=== PATIENT | male | born 1990 | race Two or more races ===

== ENCOUNTER 2019-10-31 20:37 | Emergency (ER) | payer SELFPAY ==
[~2019-10-31] VITALS: Ht 172.7 cm; Wt 67.0 kg
[2019-10-31] MEDS ORDERED: OMEP10 PO (20:58)
[2019-10-31 22:02] LABS: NEUTROPHILS % (AUTO) 63.6 % (40.0-70.0)
[2019-10-31 22:06] LABS: BASOPHILS % (AUTO) 0.3 % (0.0-2.0); EOSINOPHILS % (AUTO) 1.1 % (1.0-6.0); HEMATOCRIT 48.8 % (41-53); LYMPHOCYTES # (AUTO) 2.2 K/uL (1.0-4.8); LYMPHOCYTES % (AUTO) 23.7 % (22.0-44.0); MEAN CORPUSCULAR HEMOGLOBIN 31.6 pg (26.0-34.0); MEAN CORPUSCULAR HGB CONC 34.8 G/dL (31.0-37.0); MEAN CORPUSCULAR VOLUME 91 fL (80-100); MONOCYTES % (AUTO) 11.3 % (2.0-9.0); NEUTROPHILS # (AUTO) 5.8 K/uL (1.8-7.7); PLATELET COUNT (AUTO) 222 K/uL (150-450); RED BLOOD CELL COUNT(AUTO) 5.39 MIL/uL (4.50-5.90); RED CELL DISTRIBUTION WIDTH 13.6 % (11.5-14.5)
[2019-10-31 22:13] LABS: ANION GAP 7 mmol/L (8-16); CALCIUM, TOTAL 9.5 mg/dL (8.8-10.5); CARBON DIOXIDE 30 mmol/L (22-29); CHLORIDE 98 mmol/L (98-107); CREATININE 0.81 mg/dL (0.60-1.30); GLOMERULAR FILTR. RATE CALC > 60 mL/min (>60); GLUCOSE,RANDOM 107 mg/dL (70-110); POTASSIUM 4.2 mmol/L (3.5-5.1); SODIUM SERUM 135 mmol/L (136-145); UREA NITROGEN, BLOOD 14 mg/dL (7-18)
[2019-10-31 22:19] LABS: ALANINE AMINOTRANSFERASE 33 U/L (12-78); ALBUMIN 4.2 g/dL (3.4-5.0); ALKALINE PHOSPHATASE 72 U/L (46-116); ASPARTATE AMINOTRANSFERASE 23 U/L (15-37); BILIRUBIN,TOTAL 0.7 mg/dL (0.1-1.0); LIPASE 70 U/L (73-393); TOTAL PROTEIN, SERUM 8.6 g/dL (6.4-8.2)
[2019-10-31 23:52] VITALS: BP 156/107
[2019-11-01 00:44] LABS: APPEARANCE,URINE TURBID (CLEAR); BILIRUBIN,URINE NEGATIVE (NEGATIVE); GLUCOSE, URINE (UA) NEGATIVE (NEGATIVE); KETONES,URINE NEGATIVE (NEGATIVE); LEUKOCYTE ESTERASE ,URINE NEGATIVE (NEGATIVE); NITRATE,URINE NEGATIVE (NEGATIVE); OCCULT BLOOD,URINE NEGATIVE (NEGATIVE); PROTEIN,URINE SEE CONFIRM (NEGATIVE)
[2019-11-01 00:59] LABS: SULFOSALICYLIC ACID,URINE Trace (Negative)
[2019-11-01 01:00] LABS: AMORPHOUS SEDIMENT,UR Many /LPF (None Seen); BACTERIA,URINE Few /HPF (None Seen); RBC,URINE 0-2 /HPF (0-2); WBC,URINE 0-2 /HPF (0-5)
[2019-11-01] MEDS ORDERED: FAMOTIDINE 20 MG TABLET PO ONE (01:15)
[2019-11-01] MEDS ORDERED: PB/HYOSCY/ATR/SCOP/LIDO/MAALOX 55 ML BOTTLE PO ONE (01:15)
== END 2019-11-01 01:35 | disposition home or self-care (01) ==
LOC: EMS 20:39
DX: K29.70 Gastritis, unspecified, without bleeding (principal)
CPT/HCPCS: 93005

== ENCOUNTER 2021-11-05 01:51 | Emergency (ER) | payer MEDICAID ==
[~2021-11-05] VITALS: Ht 172.7 cm; Wt 62.0 kg
[~2021-11-05 01:51] MED LIST: OMEP10 PO
[2021-11-05] MEDS ORDERED: SODIUM CHLORIDE 0.9% 1,000 ML IV ONE (02:45)
[2021-11-05] MEDS ORDERED: METOCLOPRAMIDE HCL 5 MG/ML 2 ML VIAL IVP ONE (02:45)
[2021-11-05] MEDS ORDERED: DiphenhydrAMINE HCL 50 MG/ML VIAL IVP ONE (02:45)
[2021-11-05 05:10] VITALS: BP 142/72
== END 2021-11-05 05:15 | disposition home or self-care (01) ==
LOC: EMS 01:51
DX: R51.9 Headache, unspecified (principal); R11.2 Nausea with vomiting, unspecified
CPT/HCPCS: 70450; 96361; 96374; 96375; 99284; J1200; J2765; J7030

== ENCOUNTER 2023-04-29 21:40 | Emergency (ER) | payer MEDICAID ==
[~2023-04-29] VITALS: Ht 165.1 cm; Wt 73.0 kg
[2023-04-29] MEDS ORDERED: SODIUM CHLORIDE 0.9% 1,000 ML IV ONE (22:30)
[2023-04-29] MEDS ORDERED: DiphenhydrAMINE HCL 50 MG/ML VIAL IVP ONE (22:30)
[2023-04-29] MEDS ORDERED: METOCLOPRAMIDE HCL 5 MG/ML 2 ML VIAL IVP ONE (22:30)
[2023-04-29] MEDS ORDERED: KETOROLAC TROMETHAMINE 30 MG/ML VIAL IVP ONE (22:30)
[2023-04-30 00:31] VITALS: BP 124/68; PULSE 71; RESP 18; TEMP 97.3
== END 2023-04-30 00:41 | disposition home or self-care (01) ==
LOC: EMS 21:40
DX: R51.9 Headache, unspecified (principal); F12.90 Cannabis use, unspecified, uncomplicated
CPT/HCPCS: 99285; 96374; 96375; 96361; J1200; J1885; J2765; J7030

== ENCOUNTER 2024-02-13 19:19 | Emergency (ER) | payer MEDICAID ==
[~2024-02-13] VITALS: Ht 167.6 cm; Wt 75.0 kg
[~2024-02-13 19:19] MED LIST changes: -OMEP10 PO; +OMEP10CA38 PO
[2024-02-13 19:36] VITALS: TEMP 99.9
[2024-02-13 20:01] LABS: COVID AG,FIA SOURCE NASAL SWAB
[2024-02-13 20:19] LABS: INFLUENZA TYPE A NEGATIVE FOR TYPE A (NEGATIVE); INFLUENZA TYPE B NEGATIVE FOR TYPE B (NEGATIVE); SARS-COV2 (COVID) ANTIGEN,FIA Negative (Negative)
[2024-02-13] MEDS ORDERED: BENZ-227 PO (22:23)
[2024-02-13] MEDS ORDERED: AZIT250T9 PO (22:23)
[2024-02-13 22:36] VITALS: BP 142/76; PULSE 107; RESP 18
== END 2024-02-13 22:38 | disposition home or self-care (01) ==
LOC: EMS 19:19
DX: J98.4 Other disorders of lung (principal); R05.9 Cough, unspecified; K21.9 Gastro-esophageal reflux disease without esophagitis; F12.90 Cannabis use, unspecified, uncomplicated; Z20.822 Contact with and (suspected) exposure to COVID-19
CPT/HCPCS: 87804; 99283

== ENCOUNTER 2025-06-11 18:03 | Inpatient (IN) | payer MEDICAID ==
[~2025-06-11] VITALS: Ht 165.1 cm; Wt 76.1 kg
[~2025-06-11 18:03] MED LIST changes: +BENZ-227 PO
[2025-06-11] MEDS ORDERED: LORazepam 2 MG/ML VIAL IVP ONE (18:30)
[2025-06-11 18:45] LABS: PLATELET COUNT (AUTO) 249 K/uL (150-450); RED BLOOD CELL COUNT(AUTO) 5.43 MIL/uL (4.50-5.90); RED CELL DISTRIBUTION WIDTH 13.3 % (11.5-14.5); WHITE BLOOD COUNT (AUTO) 8.8 K/uL (4.5-11.0)
[2025-06-11 18:55] LABS: ALCOHOL, BLOOD (SERUM) 119 mg/dL (0-10)
[2025-06-11 18:56] LABS: CALCIUM, TOTAL 9.5 mg/dL (8.8-10.5); CREATININE 0.94 mg/dL (0.60-1.30); GLOMERULAR FILTR. RATE CALC > 60 mL/min (>60); GLUCOSE,RANDOM 115 mg/dL (70-110); SODIUM SERUM 136 mmol/L (136-145); UREA NITROGEN, BLOOD 11 mg/dL (7-18)
[2025-06-11 19:07] LABS: TROPONIN I-HIGH SENSITIVITY 26 ng/L (<76)
[2025-06-11 19:10] LABS: ASPARTATE AMINOTRANSFERASE 27 U/L (15-37); CREATINE KINASE, TOTAL ONLY 233 U/L (39-308); TOTAL PROTEIN, SERUM 8.9 g/dL (6.4-8.2)
[2025-06-11 19:15] LABS: LACTIC ACID 5.7 mmol/L (0.4-2.0)
[2025-06-11] MEDS: LORazepam 2 MG/ML VIAL IVP ONE (19:15)
[2025-06-11 19:16] LABS: PHOSPHORUS 0.9 mg/dL (2.5-4.9)
[2025-06-11] MEDS: SODIUM CHLORIDE 0.9% 1,000 ML IV ONE ×2 (19:18→23:58)
[2025-06-11] MEDS ORDERED: SODIUM CHLORIDE 0.9% 500 ML IV ONE (19:30)
[2025-06-11 19:45] LABS: COVID AG,FIA SOURCE NASAL SWAB
[2025-06-11 20:40] LABS: SARS-COV2 (COVID) ANTIGEN,FIA Negative (Negative)
[2025-06-11] MEDS: CefTRIAXone 1 GM/DEXTROSE 50 ML IV ONE (23:58)
[2025-06-11] MEDS: SODIUM,POTASSIUM PHOSPHATES POWDER PACKET PO ONE (23:58)
[2025-06-11] MEDS: MAGNESIUM SULFATE 2 GM, MVI, ADULT NO.1 WITH VIT K 10 ML, THIAMINE 100 MG, FOLIC ACID 1... IV ONE (23:59)
[2025-06-12 01:07] VITALS: BP 133/96; PULSE 90; RESP 19; TEMP 98.2; O2SAT 100
[2025-06-12] MEDS: LORazepam 2 MG/ML VIAL IVP PRN (01:13)
[2025-06-12 04:44] VITALS: BP 112/65; PULSE 78; RESP 18; TEMP 97.9; O2SAT 98
[2025-06-12 06:49] LABS: PLATELET COUNT (AUTO) 198 K/uL (150-450); RED BLOOD CELL COUNT(AUTO) 5.01 MIL/uL (4.50-5.90); RED CELL DISTRIBUTION WIDTH 13.3 % (11.5-14.5); WHITE BLOOD COUNT (AUTO) 6.9 K/uL (4.5-11.0)
[2025-06-12 06:55] LABS: CALCIUM, TOTAL 7.9 mg/dL (8.8-10.5); CREATININE 0.65 mg/dL (0.60-1.30); GLOMERULAR FILTR. RATE CALC > 60 mL/min (>60); GLUCOSE,RANDOM 93 mg/dL (70-110); SODIUM SERUM 140 mmol/L (136-145); UREA NITROGEN, BLOOD 6 mg/dL (7-18)
[2025-06-12] MEDS: FOLIC ACID 1 MG TABLET PO SCH (08:34)
[2025-06-12 08:37] VITALS: BP 110/72; PULSE 83; RESP 17; TEMP 98.2; O2SAT 98
[2025-06-12] MEDS ORDERED: THIAMINE 100 MG/ML 2 ML VIAL IVP SCH (09:00)
[2025-06-12 11:40] VITALS: BP 122/91; PULSE 68; RESP 17; TEMP 97.5; O2SAT 99
[2025-06-12 15:54] VITALS: BP 119/81; PULSE 68; RESP 18; TEMP 98.1; O2SAT 99
[2025-06-12 20:49] VITALS: BP 112/72; PULSE 66; RESP 18; TEMP 98.2; O2SAT 98
[2025-06-13] VITALS (7 sets, daily range): BP systolic 101–125; BP diastolic 67–78; PULSE 60–72; RESP 17–19; TEMP 97.9–98.6; O2SAT 97–100
[2025-06-13 01:07] LABS: HEPATITIS C AB (EIA) Non Reactive (Non Reactive)
[2025-06-13 07:47] LABS: PLATELET COUNT (AUTO) 191 K/uL (150-450); RED BLOOD CELL COUNT(AUTO) 4.92 MIL/uL (4.50-5.90); RED CELL DISTRIBUTION WIDTH 13.4 % (11.5-14.5); WHITE BLOOD COUNT (AUTO) 5.4 K/uL (4.5-11.0)
[2025-06-13 07:56] LABS: CALCIUM, TOTAL 8.5 mg/dL (8.8-10.5); CREATININE 0.49 mg/dL (0.60-1.30); GLOMERULAR FILTR. RATE CALC > 60 mL/min (>60); GLUCOSE,RANDOM 99 mg/dL (70-110); SODIUM SERUM 140 mmol/L (136-145); UREA NITROGEN, BLOOD 9 mg/dL (7-18)
[2025-06-13] MEDS: THIAMINE 100 MG/ML 2 ML VIAL IVP SCH (09:22)
[2025-06-13 10:03] LABS: BAND NEUTROPHILS % (MANUAL) 2 % (0-5); EOSINOPHILS % (MANUAL) 8 % (1-6); LYMPHOCYTES % (MANUAL) 20 % (22-44); MONOCYTES % (MANUAL) 4 % (2-9); SEGMENTED NEUTROPHILS % 66 % (40-70)
[2025-06-13 10:04] LABS: RBC MORPHOLOGY COMMENT NORMAL RBC MORPH
[2025-06-13] MEDS: MAGNESIUM SULFATE 2 GM, MVI, ADULT NO.1 WITH VIT K 10 ML, THIAMINE 100 MG, FOLIC ACID 1... IV ONE (15:48)
[2025-06-13] MEDS: LORazepam 2 MG/ML VIAL IVP SCH (15:49)
[2025-06-14 04:53] VITALS: BP 101/70; PULSE 67; RESP 18; TEMP 97.8; O2SAT 100
[2025-06-14 07:06] LABS: PLATELET COUNT (AUTO) 187 K/uL (150-450); RED BLOOD CELL COUNT(AUTO) 5.00 MIL/uL (4.50-5.90); RED CELL DISTRIBUTION WIDTH 13.0 % (11.5-14.5); WHITE BLOOD COUNT (AUTO) 5.5 K/uL (4.5-11.0)
[2025-06-14 07:13] LABS: CALCIUM, TOTAL 8.5 mg/dL (8.8-10.5); CREATININE 0.45 mg/dL (0.60-1.30); GLOMERULAR FILTR. RATE CALC > 60 mL/min (>60); GLUCOSE,RANDOM 94 mg/dL (70-110); SODIUM SERUM 140 mmol/L (136-145); UREA NITROGEN, BLOOD 8 mg/dL (7-18)
[2025-06-14 08:16] LABS: BAND NEUTROPHILS % (MANUAL) 2 % (0-5); EOSINOPHILS % (MANUAL) 3 % (1-6); LYMPHOCYTES % (MANUAL) 39 % (22-44); MONOCYTES % (MANUAL) 2 % (2-9); RBC MORPHOLOGY COMMENT NORMAL RBC MORPH; SEGMENTED NEUTROPHILS % 54 % (40-70)
[2025-06-14 08:37] VITALS: BP 94/64; PULSE 65; RESP 18; TEMP 97.7; O2SAT 97
[2025-06-14 13:45] VITALS: BP 97/64
[2025-06-14] MEDS ORDERED: FOLI1TAB36 PO (14:36)
[2025-06-14] MEDS ORDERED: THIA50TA13 PO (14:36)
== END 2025-06-14 19:22 | disposition home or self-care (01) | DRG 422 ==
LOC: EMS 18:03 → EDH 20:31 → 5N 06-12 00:25 → 6S 06-13 11:20
PROVIDERS: ADMIT Internal Medicine; ATTEND Internal Medicine
DX: E87.6 Hypokalemia (principal); E86.0 Dehydration; E83.39 Other disorders of phosphorus metabolism; F10.239 Alcohol dependence with withdrawal, unspecified; E83.42 Hypomagnesemia; K21.9 Gastro-esophageal reflux disease without esophagitis; F41.9 Anxiety disorder, unspecified; Y90.5 Blood alcohol level of 100-119 mg/100 ml; Z20.822 Contact with and (suspected) exposure to COVID-19
CPT/HCPCS: 70450; 71045; 80048; 80076; 82140; 82550; 83605; 83735; 84100; 84443; 84484; 85025; 85610; 85730; 86803; 87040; 87340; 93005; 97116; 97162; 97165; 99291; G0378; G0480; J0696; J2060; J3411; J3475; J3490; J7030; 36415-L1; 36415-TC